=== PATIENT | female | born 1995 | race Two or more races ===

== ENCOUNTER 2020-04-03 22:34 | Emergency (ER) | payer BC, OTHER ==
[~2020-04-03] VITALS: Ht 162.6 cm; Wt 90.7 kg
[2020-04-03 23:19] LABS: Basophils # (auto) 0.1 10 ^3/uL (0-0.2); Basophils % (auto) 0.5 % (0.0-2.0); Eosinophils # (auto) 0.2 10 ^3/uL (0-0.8); Eosinophils % (auto) 2.3 % (0.0-7.0); Hematocrit 38.1 % (36.0-46.0); Hemoglobin 12.8 g/dL (12.2-16.2); Lymphocytes # (auto) 2.7 10 ^3/uL (0.4-5.4); Lymphocytes % (auto) 28.8 % (10.0-50.0); Mean Corpuscular Hemoglobin 28.1 pg (28.0-32.0); Mean Corpuscular Hgb Conc. 33.5 g/dL (32.0-36.0); Monocytes # (auto) 0.8 10 ^3/uL (0-1.3); Monocytes % (auto) 8.2 % (0.0-12.0); Neutrophils # (auto) 5.6 10 ^3/uL (1.6-8.6); Neutrophils % (auto) 60.2 % (37.0-80.0); Nucleated Red Blood Cells % 0.1 %; Platelet Count (auto) 301 10^3/uL (140-450); Red Blood Cells 4.54 10^6/uL (4.0-5.20); Red Cell Distribution Width 15.4 % (11.8-14.3); White Blood Cell 9.4 10^3/uL (4.4-10.8)
[2020-04-03 23:34] LABS: Albumin 3.7 g/dL (3.4-5.0); BUN/Creatinine Ratio 22.4; Calcium 8.7 mg/dL (8.5-10.1); Potassium 3.6 mmol/L (3.5-5.1)
[2020-04-03 23:36] LABS: Bilirubin, Total 0.2 mg/dL (0.2-1.0); Total Protein 7.8 g/dL (6.4-8.2)
[2020-04-04 04:06] VITALS: BP 127/78
== END 2020-04-04 04:18 | disposition home or self-care (01) ==
LOC: ER 22:35
DX: O41.8X10 Other specified disorders of amniotic fluid and membranes, first trimester, not applicable or unspecified (principal); O46.8X1 Other antepartum hemorrhage, first trimester; O26.851 Spotting complicating pregnancy, first trimester; Z3A.01 Less than 8 weeks gestation of pregnancy
CPT/HCPCS: 36415; 76801; 76817; 80053; 84702; 85025